=== PATIENT | female | born 1970 | race American Indian/Alaskan Native ===

== ENCOUNTER 2017-01-21 12:58 | Outpatient (CLI) | payer BC ==
--- NOTE | 2017-01-22 08:05 | Mammography Report ---
BILATERAL DIGITAL SCREENING MAMMOGRAM with CAD : 01/21/17 12:58:00 CLINICAL: Routine screening.Previously confirmed left breast cysts. COMPARISON:01/21/16 and 01/07/15 FINDINGS: The breasts are heterogeneously dense, which may obscure small masses. No mass, architectural distortion or suspicious calcifications. IMPRESSION: No mammographic evidence of malignancy. BI-RADS CATEGORY: 2 -- Benign RECOMMENDATION: Routine mammographic screening in one year. COMMENT: Patient follow-up letters are generated by our [employer] application.
== END 2017-01-21 12:59 | disposition home or self-care (01) ==
LOC: SPVWC 12:58
PROVIDERS: ATTEND Family Medicine
DX: Z12.31 Encounter for screening mammogram for malignant neoplasm of breast (principal)
CPT/HCPCS: 77067; G0202

== ENCOUNTER 2018-01-25 13:22 | Outpatient (CLI) | payer BC ==
--- NOTE | 2018-01-25 15:50 | Mammography Report ---
BILATERAL DIGITAL SCREENING MAMMOGRAM with CAD: 01/25/18 13:22:00 CLINICAL: Routine screening. COMPARISON:01/21/17 and mammograms going back to 12/19/10 FINDINGS: The breasts are heterogeneously dense, which may obscure small masses. A new 3.3 cm oval circumscribed left outer mass or cyst requires additional imaging.No architectural distortion or suspicious calcifications.The right breast is negative. IMPRESSION: Left outer mass or cyst requiring further workup. BI-RADS CATEGORY: 0 -- Additional Imaging Evaluation Required RECOMMENDATION: Recall for a targeted outer left breast ultrasound. ACR BI-RADS MAMMOGRAPHIC CODES: 0 = Needs additional imaging evaluation; 1 = Negative; 2 = Benign; 3 = Probably benign; 4 = Suspicious; 5 = Malignant; 6 = Known biopsy-proven malignancy COMMENT: 1. Dense breast tissue, i.e., adenosis, fibrocystic changes, etc., may obscure an underlying neoplasm. 2. Approximately 10% of cancers are not detected with mammography. 3. A negative mammography report should not delay biopsy if a clinically suspicious mass is present. COMMENT: Patient follow-up letters are generated via our [employer] application.
== END 2018-01-25 13:23 | disposition home or self-care (01) ==
LOC: SPVWC 13:22
PROVIDERS: ATTEND Family Medicine
DX: Z12.31 Encounter for screening mammogram for malignant neoplasm of breast (principal)
CPT/HCPCS: 77067

== ENCOUNTER 2019-02-27 14:22 | Outpatient (CLI) | payer BC ==
--- NOTE | 2019-02-28 10:50 | Mammography Report ---
DIGITAL SCREENING MAMMOGRAM WITH CAD, 02/27/2019 INDICATION: Routine screening mammography. History of cysts. TECHNIQUE: Digital bilateral 2D mammography was obtained in the craniocaudal and mediolateral obliq ue projections. This examination was interpreted with the benefit of Computer-Aided Detection analysi s. COMPARISON: 01/25/2018 and mammograms going back to 2010. FINDINGS: Breast Density: The breasts are heterogeneously dense, which may obscure small masses. Partially circumscribed left asymmetries on both views require additional imaging. No architectural d istortion or suspicious calcifications. A 3.6 cm oval circumscribed density in the outer left breast correlates with a previously confirmed 3 cm cyst. There is no evidence of dominant mass, suspicious c alcifications or architectural distortion in the right breast. IMPRESSION: Left asymmetries requiring additional imaging. Recommend recall for left spot compression views and left breast ultrasound if needed. Follow up recommendation: Special View: Spot Category 0: Incomplete. Needs additional imaging evaluation and/or prior mammograms for comparison. A "normal" or negative report should not discourage follow up or biopsy of a clinically significant f inding. A written summary of these findings will be mailed to the patient. The patient will be entered into a mammography reporting system which will generate a reminder letter for the patient's next appointmen t at the appropriate interval. The [employer] recommends yearly mammograms starting at age 40 and continuing as l akil as a woman is in good health. Breast MRI is recommended for women with an approximate 20-25% or greater lifetime risk of breast cancer, including women with a strong family history of breast or ova ford cancer or who have been treated for Hodgkin's disease. Signer Name: Jayant Cole MD Signed: 02/28/2019 10:46 AM Workstation Name: [id number]
== END 2019-02-27 14:23 | disposition home or self-care (01) ==
LOC: SPVWC 14:22
PROVIDERS: ATTEND Physician Assistant
DX: Z12.31 Encounter for screening mammogram for malignant neoplasm of breast (principal)
CPT/HCPCS: 77067

== ENCOUNTER 2019-03-08 12:20 | Outpatient (CLI) | payer BC ==
--- NOTE | 2019-03-08 13:59 | Ultrasound Report ---
LEFT DIGITAL DIAGNOSTIC MAMMOGRAM WITH CAD -- 03/08/2019 LEFT COMPLETE BREAST ULTRASOUND INDICATION: Recall to evaluate asymmetries identified at screening. F/U abnormal mammogram TECHNIQUE: Digital left mammographic imaging was performed. Spot compression views were obtained. Co mplete ultrasound of all four (4) quadrants was performed. This examination was interpreted with the benefit of Computer-Aided Detection (CAD) analysis. COMPARISON: 02/27/2019 FINDINGS: Breast Density: The breasts are heterogeneously dense, which may obscure small masses. MAMMOGRAPHIC FINDINGS: Lateralmedial and spot compression MLO and CC views were performed and demonst rate persistent asymmetries. ULTRASOUND FINDINGS: Complete sonographic evaluation of all 4 quadrants and retroareolar region was p erformed. Ultrasound demonstrated an oval anechoic smooth thin wall cyst at 3:00 4.5 cm from the ni pple measuring 3.3 x 1.7 x 3.3 cm. It correlates with the dominant mammographic mass. A benign cyst at 10:00 4 cm from the nipple measures 1.0 cm. A solid mass versus thick walled partially collapsed c yst at 11:00 6 cm from the nipple measures 8 x 6 x 7 mm.Several additional smaller benign cysts. IMPRESSION: 1. A solid mass versus thick walled partially collapsed cyst at 11:00 6 cm from the nipple. Recommend second guided needle aspiration/biopsy. 2. Several benign cysts with the largest at 3:00 4.5 cm from the nipple measuring 3.3 cm. I discussed the ultrasound guided needle aspiration/biopsy procedure with the patient at the time of the exam. Follow up recommendation: Biopsy BI-RADS Category 4: Suspicious for Malignancy. A "normal" or negative report should not discourage follow up or biopsy of a clinically significant f inding. A written summary of these findings will be mailed to the patient. The patient will be entered into a mammography reporting system which will generate a reminder letter for the patient's next appointmen t at the appropriate interval. According to the [employer], yearly mammograms are recommended starting at age 40 and continuing as long as a woman is in good health. Breast MRI is recommended for women with an lg roximately 20-25% or greater lifetime risk of breast cancer, including women with a strong family his tory of breast or ovarian cancer and women who have been treated for Hodgkin's disease. Signer Name: Jayant Cole MD Signed: 03/08/2019 1:54 PM Workstation Name: [id number]
== END 2019-03-08 12:21 | disposition home or self-care (01) ==
LOC: SPVWC 12:20
PROVIDERS: ATTEND Family Medicine
DX: N60.02 Solitary cyst of left breast (principal)

== ENCOUNTER 2019-03-27 12:23 | Outpatient (CLI) | payer BC ==
--- NOTE | 2019-03-27 15:25 | Ultrasound Report ---
ULTRASOUND-GUIDED LEFT BREAST CYST ASPIRATION CLINICAL: Complex cyst versus solid mass at 11:00 6 cm from the nipple. The procedure was explained to the patient and informed consent obtained. PROCEDURE: Using sonographic guidance, 5 mL of 1% lidocaine, and a 18-gauge needle, less than 1 mL o f yellowish fluid was removed from the cyst. The cyst showed complete collapse. IMPRESSION: Uncomplicated successful benign cyst aspiration left breast. Recommend routine mammograph ic screening in one year. BI-RADS Category 2: Benign Signer Name: Jayant Cole MD Signed: 03/27/2019 3:21 PM Workstation Name: [id number]
== END 2019-03-27 12:24 | disposition home or self-care (01) ==
LOC: SPVWC 12:23
PROVIDERS: ATTEND Family Medicine
DX: N60.02 Solitary cyst of left breast (principal)
CPT/HCPCS: 76942

== ENCOUNTER 2020-02-29 13:50 | Outpatient (CLI) | payer BC ==
--- NOTE | 2020-02-29 17:31 | Mammography Report ---
DIGITAL SCREENING MAMMOGRAM WITH CAD, 02/29/2020 INDICATION: Routine screening mammography. TECHNIQUE: Digital bilateral 2D mammography was obtained in the craniocaudal and mediolateral obliq ue projections. This examination was interpreted with the benefit of Computer-Aided Detection analysi s. COMPARISON: 02/27/2019. FINDINGS: Breast Density: The breasts are heterogeneously dense, which may obscure small masses. There is no evidence of dominant mass, suspicious calcifications or architectural distortion in eithe r breast. Benign improving nodularity. IMPRESSION: Follow up recommendation: Routine yearly BI-RADS Category 2: Benign. A "normal" or negative report should not discourage follow up or biopsy of a clinically significant f inding. A written summary of these findings will be mailed to the patient. The patient will be entered into a mammography reporting system which will generate a reminder letter for the patient's next appointmen t at the appropriate interval. The [employer] recommends yearly mammograms starting at age 40 and continuing as l akil as a woman is in good health. Breast MRI is recommended for women with an approximate 20-25% or greater lifetime risk of breast cancer, including women with a strong family history of breast or ova ford cancer or who have been treated for Hodgkin's disease. Signer Name: Fabrizio Gillette MD Signed: 02/29/2020 5:26 PM Workstation Name: [id number]
== END 2020-02-29 13:51 | disposition home or self-care (01) ==
LOC: SPVWC 13:50
PROVIDERS: ATTEND Family Medicine
DX: Z12.31 Encounter for screening mammogram for malignant neoplasm of breast (principal); N64.89 Other specified disorders of breast
CPT/HCPCS: 77067

== ENCOUNTER 2021-03-03 15:37 | Outpatient (CLI) | payer OTHER ==
--- NOTE | 2021-03-04 08:28 | Mammography Report ---
BILATERAL DIGITAL SCREENING MAMMOGRAM WITH CAD HISTORY: Screening mammogram. TECHNIQUE: Routine digital mammographic imaging performed. This examination was interpreted with gael espinosa benefit of Computer-aided Detection analysis. COMPARISON: 02/29/2020, 02/27/2019, 01/25/2018, 01/21/2017. FINDINGS: Breast Density: heterogeneously dense breast parenchymal pattern which somewhat lessens the sensitivi ty of the evaluation. Digital CC and MLO views demonstrate no mammographic evidence of malignancy. IMPRESSION: No mammographic evidence of malignancy. If the clinical examination remains stable, recommend bilate ral mammogram in approximately one year. BIRADS 1: Negative. FURTHER INFORMATION: According to the [employer], yearly mammograms are recommend ed starting at age 40 and continuing as long as a woman is in good health. Clinical Breast Exams shou ld be part of a periodic health exam-about every 3 years for women in their 20s and 30s and every yea r for women 40 and over. Breast self exam is an option for women starting in their 20s. Any breast ch bharathi noted on a breast self exam should be reported promptly to the patient's healthcare provider. [place] MRI is recommended for women with an approximately 20-25% or greater lifetime risk of breast can cer, including women with a strong family history of breast or ovarian cancer and women who have been treated for Hodgkin's disease. A negative Mammography report should not discourage follow up or biopsy of a clinically significant f inding and/or abnormality. Dense breast tissue may obscure small neoplasms. The patient will be entered into a reminder system with a target due date for the next screening mamm ogram. Signer Name: Frank Ivory MD Signed: 03/04/2021 8:23 AM Workstation Name: [id number]
== END 2021-03-03 15:38 | disposition home or self-care (01) ==
LOC: SPVWC 15:37
PROVIDERS: ATTEND Internal Medicine
DX: Z12.31 Encounter for screening mammogram for malignant neoplasm of breast (principal)
CPT/HCPCS: 77067